=== PATIENT | male | born 1950 ===

== ENCOUNTER 2021-02-26 18:00 | Inpatient (IN) | payer OTHER ==
[~2021-02-26] VITALS: Ht 165.1 cm; Wt 86.2 kg
[2021-02-26] MEDS ORDERED: GLIPIZIDE ER5 MG (18:23)
[2021-02-26] MEDS ORDERED: DONEPEZIL HCL OD5 MG (18:25)
[2021-02-26] MEDS ORDERED: IRBESARTAN-HCT1 EACH (18:25)
[2021-02-26] MEDS ORDERED: TAMS0.4C (18:25)
[2021-02-26] MEDS ORDERED: LANTUS SOL100 UNIT/1 (18:26)
[2021-03-12] MEDS ORDERED: PANTOPRAZOLE SO40 MG PO (10:23)
[2021-03-12] MEDS ORDERED: POLY119PG PO (10:23)
== END 2021-03-12 16:40 | disposition home or self-care (01) | DRG 812 ==
LOC: ER 18:00 → MEDJ 02-27 02:25 → MEDI 02-27 02:25
PROVIDERS: Surgery; ADMIT Internal Medicine; ATTEND Internal Medicine
PROC: 30233N1 Transfusion of Nonautologous Red Blood Cells into Peripheral Vein, Percutaneous Approach (ICD-10-PCS; 2021-02-27)
PROC: 0DJD8ZZ Inspection of Lower Intestinal Tract, Via Natural or Artificial Opening Endoscopic (ICD-10-PCS; 2021-03-06)
PROC: 3E1H78Z Irrigation of Lower GI using Irrigating Substance, Via Natural or Artificial Opening (ICD-10-PCS; principal; 2021-03-06 11:00)
PROC: 0DB78ZX Excision of Stomach, Pylorus, Via Natural or Artificial Opening Endoscopic, Diagnostic (ICD-10-PCS; 2021-03-11)
DX: D64.9 Anemia, unspecified (principal); N39.0 Urinary tract infection, site not specified; K56.41 Fecal impaction; N20.0 Calculus of kidney; Z74.01 Bed confinement status; R97.20 Elevated prostate specific antigen [PSA]; E87.6 Hypokalemia

== ENCOUNTER 2021-03-24 21:46 | Inpatient (IN) | payer OTHER ==
[~2021-03-24] VITALS: Ht 160 cm; Wt 54.4 kg
[~2021-03-24 21:46] MED LIST: DONEPEZIL HCL OD5 MG; GLIPIZIDE ER5 MG; IRBESARTAN-HCT1 EACH; LANTUS SOL100 UNIT/1; PANTOPRAZOLE SO40 MG PO; POLY119PG PO; TAMS0.4C
--- NOTE | 2021-03-24 22:16 | NUR ---
PTE SE RECIBE POR INFLAMACION DE LA GARGANTA REFIERE PARAMEDICO Y FAMILIAR.
--- NOTE | 2021-03-24 23:38 | NUR ---
PTE EVALUADO POR EL DR KENNEY QUIEN OR[place] EL [place]. MS S SUGEY ORIENTA SOBRE EL TX ORDENADO, LO CUAL REFIERE ENTENDER, REALIZA PRUEBAS DE LABORATROIO Y ADMINISTRA MEDICAMENTOS NIKO ORDEN MEDICA Y SIGUIENDO MEDIDAS ASEPTICAS Y ESTERILES.
--- NOTE | 2021-03-24 23:57 | NUR ---
SE INTENTA CATETERIZAR PTE NIKO ORDEN MEDICA Y SIGUIENDO MEDIDAS ASEPTICAS Y ESTERILES EN MULTIPLES OCASIONES CON LA ASISTENCIA DE MS Lynnette SUGEY SIN EXITO ALGUNA, SE NOTIFICA A DR KENNEY QUIEN INDICA COLOCAR CONDOM WHEAT POR EL MOMENTO.
--- NOTE | 2021-03-25 06:09 | NUR ---
PACIENTE ALERTA EN ANCA CON BARANDAS ELEVADAS Y SEGURAS. SE RAY SIGNOS VITALES Y SE REPORTAN. SE PAU TEMPERATURA RECTAL DE [address]. SE NOTIFICA A DR. HENDRICKSON QUIEN ORDENA QUE SE ADMINISTRE TYLENOL 650MG SUPP. SE ADMINISTRA MEDICAMENTO Y SE PROVEE CAMBIO DE PANAL, PRESENTANDO FABI EVACUACION. PACIENTE CONTINUA CON CONDOM WHEAT.
--- NOTE | 2021-03-25 07:37 | NUR ---
SE RECIBE PTE EN EL AREA DE OBSERVACION EN CAMA CON BARANDAS ELEVADA Y TIMBRE ACCESIBLE PTE EN COMPANIA DE LA CUIDADO PTE DESORIENTADO CON VENOPUNCION PANTENTE Y MORGAN DE EDEMA, PTE CON CUATE WHEAT SE OBSERVA CON HEMATURIA PTE SE MANTIENE EN OBSERVACION Y BAJO TRATAMIENTO PTE EN ESPERA DEL DR AGUILAR
== END 2021-04-08 14:45 | disposition home or self-care (01) | DRG 871 ==
LOC: ER 21:46 → MEDI 03-25 09:45
PROVIDERS: ADMIT Internal Medicine; ATTEND Internal Medicine
PROC: 30233N1 Transfusion of Nonautologous Red Blood Cells into Peripheral Vein, Percutaneous Approach (ICD-10-PCS; principal; 2021-03-27)
PROC: 0DH63UZ Insertion of Feeding Device into Stomach, Percutaneous Approach (ICD-10-PCS; 2021-04-03)
DX: A41.9 Sepsis, unspecified organism (principal); R65.21 Severe sepsis with septic shock; E46 Unspecified protein-calorie malnutrition; N39.0 Urinary tract infection, site not specified; K11.21 Acute sialoadenitis; Z74.01 Bed confinement status; E86.0 Dehydration; D64.9 Anemia, unspecified; E87.6 Hypokalemia; B96.20 Unspecified Escherichia coli [E. coli] as the cause of diseases classified elsewhere; R13.19 Other dysphagia; Z20.822 Contact with and (suspected) exposure to COVID-19; K26.9 Duodenal ulcer, unspecified as acute or chronic, without hemorrhage or perforation